=== PATIENT | male | born 1990 | race American Indian/Alaskan Native ===

== ENCOUNTER 2020-08-04 12:40 | Emergency (ER) | payer MEDICAID ==
[2020-08-04 13:20] VITALS: BP 116/75
--- NOTE | 2020-08-04 13:31 | Emergency Department Report ---
ED General Adult HPI - General Chief complaint: Medical Clearance Stated complaint: OUT BREAK NEED MEDS Time Seen by Provider: 08/04/20 13:30 Source: patient Mode of arrival: Ambulatory Limitations: No Limitations - History of Present Illness Initial comments: 29-year-old male with a past medical history of genital herpes presents to the ER today requesting a refill on his acyclovir. Patient states that he ran out of his acyclovir about 1 week ago. He did not try to get a hold of his primary care doctor but has been unsuccessful. He states that he did break out today and so came to the ER to see if he can get a refill. He reports no other symptoms at this time. Complaint: Refill on Acyclovir -: week(s) (1) - Related Data Previous Rx's Medication Instructions Recorded Last Taken Type Acyclovir [Zovirax Tab] 400 mg PO Q8H #70 tab 08/04/20 Unknown Rx Allergies Allergy/AdvReac Type Severity Reaction Status Date / Time No Known Allergies Allergy Unverified 08/04/20 13:18 ED Review of Systems ROS: Stated complaint: OUT BREAK NEED MEDS Other details as noted in HPI Comment: All other systems reviewed and negative Constitutional: denies: chills, fever Eyes: denies: eye pain, eye discharge, vision change ENT: denies: ear pain, throat pain Respiratory: denies: cough, shortness of breath, wheezing Cardiovascular: denies: chest pain, palpitations Endocrine: no symptoms reported Gastrointestinal: denies: abdominal pain, nausea, diarrhea, constipation, hematemesis, melena, hematochezia Genitourinary: denies: urgency, dysuria, frequency, hematuria, discharge, testicular pain, testicular mass Musculoskeletal: denies: back pain, joint swelling, arthralgia Skin: rash Neurological: denies: headache, weakness, paresthesias Psychiatric: denies: anxiety, depression, auditory hallucinations, visual hallucinations, homicidal thoughts, suicidal thoughts Hematological/Lymphatic: denies: easy bleeding, easy bruising ED Past Medical Hx - Past Medical History Previous Medical History?: Yes Additional medical history: herpes - Surgical History Past Surgical History?: No - Medications Home Medications: Home Medications Medication Instructions Recorded Confirmed Last Taken Type Acyclovir [Zovirax Tab] 400 mg PO Q8H #70 tab 08/04/20 Unknown Rx ED Physical Exam - General Limitations: No Limitations General appearance: alert, in no apparent distress - Head Head exam: Present: atraumatic, normocephalic, normal inspection - Neck Neck exam: Present: normal inspection, full ROM. Absent: meningismus - Respiratory Respiratory exam: Present: normal lung sounds bilaterally. Absent: respiratory distress - Cardiovascular Cardiovascular Exam: Present: regular rate, normal rhythm, normal heart sounds - Neurological Exam Neurological exam: Present: alert, oriented X3, CN II-XII intact, normal gait - Psychiatric Psychiatric exam: Present: normal affect, normal mood - Skin Skin exam: Present: intact ED Course Vital Signs 08/04/20 13:14 Temperature 98.1 F Pulse Rate 60 Respiratory 16 Rate Blood Pressure 116/75 O2 Sat by Pulse 100 Oximetry Critical care attestation.: If time is entered above; I have spent that time in minutes in the direct care of this critically ill patient, excluding procedure time. ED Disposition Clinical Impression: Medication refill, Hx of herpes genitalis Disposition: DC-01 TO HOME OR SELFCARE Is pt being admited?: No Does the pt Need Aspirin: No Condition: Stable Instructions: Medicine Refill at the Emergency Department Additional Instructions: Start taking the acyclovir today. Keep your appointment with your PCP next week. Return to ED if worse. Prescriptions: Acyclovir [Zovirax Tab] 400 mg PO Q8H #70 tab Referrals: PRIMARY CARE [Referring] - 3-5 Days Time of Disposition: 13:38
== END 2020-08-04 14:02 | disposition home or self-care (01) ==
LOC: ED 12:40
DX: A60.00 Herpesviral infection of urogenital system, unspecified (principal); Z76.0 Encounter for issue of repeat prescription; Z79.899 Other long term (current) drug therapy
CPT/HCPCS: 99282